=== PATIENT | male | born 1995 | race Caucasian/White ===

== ENCOUNTER 2022-06-09 23:32 | Emergency (ER) | payer BC, SELFPAY ==
--- NOTE | ~2022-06-09 | XR_ITS ---
EXAMINATION: XR chest 2V DATE: 06/10/2022 00:00 INDICATION: Chest pain. TECHNIQUE: Frontal and lateral views of the chest were obtained. COMPARISON: None. FINDINGS: A calcified right lung nodule and calcified right hilar lymph nodes are consistent with old granulomatous disease. No pleural effusion or pneumothorax. The heart size is normal. IMPRESSION: 1. No acute cardiopulmonary disease. Reviewed, dictated and finalized at location A.
--- NOTE | 2022-06-09 23:44 | ECG_ITS ---
Measurements Intervals [place] Rate: 66 P: 46 CA: 134 QRS: 28 QRSD: 96 T: 29 QT: 363 QTc: 383 Interpretive Statements SINUS RHYTHM NONSPECIFIC T-WAVE ABNORMALITY- ANTERIOR LEADS BORDERLINE ECG NO PREVIOUS ECG AVAILABLE FOR COMPARISON Electronically Signed On 06-10-2022 7:46:49 CDT by Carmelo Chavez D.O.
[2022-06-09 23:46] VITALS: BP 141/85; PULSE 66; RESP 16; TEMP 36.9; O2SAT 100
[2022-06-10 00:06] VITALS: PULSE 76
--- NOTE | 2022-06-10 00:29 | ED.CHESTPAIN ---
HPI - Chest Pain General Chief Complaint: Chest Pain <Marily Giron PA-C - Last Filed: 06/10/22 01:08> Stated Complaint: chest discomfort x 2 hours <Marily Giron PA-C - Last Filed: 06/10/22 01:08> Time Seen by Provider: 06/10/22 00:12 <Marily Giron PA-C - Last Filed: 06/10/22 01:08> Source: patient <Marily Giron PA-C - Last Filed: 06/10/22 01:08> Mode of arrival: ambulatory <Marily Giron PA-C - Last Filed: 06/10/22 01:08> Limitations: no limitations <Marily Giron PA-C - Last Filed: 06/10/22 01:08> History of Present Illness HPI narrative: This is a 26 year old male that presents to the ER for chest pain noted after smoking marijuana today. Reports the pain was like a pressure. Lasted for about 2 hours and has now resolved. He did not take anything for pain. Denies fever, cough, shortness of breath, or lower extremity edema. <Marily Giron PA-C - Last Filed: 06/10/22 01:08> Related Data Allergies/Adverse Reactions: Allergies Allergy/AdvReac Type Severity Reaction Status Date / Time No Known Allergies Allergy Verified 06/10/22 00:07 <Marily Giron PA-C - Last Filed: 06/10/22 01:08> Review of Systems Review of Systems: CONSTITUTIONAL: Denies fever CARDIOVASCULAR: Reports chest pain. Denies palpitations, or edema. RESPIRATORY: Denies cough or dyspnea. <Marily Giron PA-C - Last Filed: 06/10/22 01:08> All systems reviewed & are unremarkable except as noted in HPI and below <Marily Giron PA-C - Last Filed: 06/10/22 01:08> PMFSH Past Medical History Medical History: Medical History (Updated 06/10/22 @ 01:08 by Marily Giron PA-C) No active medical problems <Marily Giron PA-C - Last Filed: 06/10/22 01:08> Social History Social History: Social History (Updated 06/10/22 @ 00:30 by Marily Giron PA-C) Smoking status: Never smoker Alcohol intake: current Substance use: current Substance use type: marijuana <Marily Giron PA-C - Last Filed: 06/10/22 01:08> Exam Narrative: GENERAL: Well-appearing, well-nourished, and in no acute distress. HEAD: Normocephalic, atraumatic. EYES: EOMI. CHEST: Clear to auscultation. No respiratory distress. No wheezes rales or rhonchi HEART: Regular rate and rhythm. No murmur heard. Normal peripheral pulses. EXTREMITIES: Normal range of motion. No edema. SKIN: Warm, dry, no rash. NEURO: No focal deficits. Alert and oriented x3. PSYCH: Normal mood and affect <Marily Giron PA-C - Last Filed: 06/10/22 01:08> Course Vital Signs Vital signs: Vital Signs Temperature 98.5 F 06/09/22 23:46 Pulse Rate 66 06/09/22 23:46 Respiratory Rate 16 06/09/22 23:46 Blood Pressure 141/85 H 06/09/22 23:46 Pulse Oximetry 100 06/09/22 23:46 Oxygen Delivery Room Air 06/09/22 23:46 Temperature 98.5 F 06/09/22 23:46 Pulse Rate 76 06/10/22 00:06 Respiratory Rate 16 06/09/22 23:46 Blood Pressure 141/85 H 06/09/22 23:46 Pulse Oximetry 100 06/09/22 23:46 Oxygen Delivery Room Air 06/10/22 00:06 <Marily Giron PA-C - Last Filed: 06/10/22 01:08> Vital Signs Temperature 98.5 F 06/09/22 23:46 Pulse Rate 66 06/09/22 23:46 Respiratory Rate 16 06/09/22 23:46 Blood Pressure 141/85 H 06/09/22 23:46 Pulse Oximetry 100 06/09/22 23:46 Oxygen Delivery Room Air 06/09/22 23:46 Temperature 98.5 F 06/09/22 23:46 Pulse Rate 76 06/10/22 00:06 Respiratory Rate 16 06/09/22 23:46 Blood Pressure 141/85 H 06/09/22 23:46 Pulse Oximetry 100 06/09/22 23:46 Oxygen Delivery Room Air 06/10/22 00:06 <Milana Villanueva MD - Last Filed: 06/10/22 01:19> MDM - Chest Pain MDM Narrative Medical decision making narrative: Patient presents to the emergency department for chest pain noted after smoking marijuana tonight. Pain had resolved upon my evaluation. His vitals are stable. CBC and metabolic panel wit
[2022-06-10 00:34] LABS: Basophils Percent Auto 0.3 % (0.2-1.2); Eosinophils Absolute Auto 0.1 K/mm3 (0-0.3); Eosinophils Percent Auto 0.7 % (0-4.4); Hematocrit 44.7 % (42.0-52.0); Hemoglobin 15.3 g/dL (14.0-18.0); Immature Granulocyte Absolute 0.05 K/mm3 (0.00-0.031); Immature Granulocyte Percent A 0.5 % (0-0.5); Lymphocytes Absolute Auto 2.33 K/mm3 (0.9-3.2); Lymphocytes Percent Auto 24.1 % (18.3-44.2); Mean Corpuscular HGB Conc 34.2 g/dl (32-36); Mean Corpuscular Hemoglobin 31.5 pg (26-34); Mean Platelet Volume 9.8 fl (7.4-10.4); Monocytes Absolute Auto 0.7 K/mm3 (0.1-0.6); Neutrophils Absolute Auto 6.5 K/mm3 (1.3-6.7); Neutrophils Percent Auto 67.4 % (45.5-73.1); Platelet Count Result 235 k/mm3 (150-375); Red Blood Count 4.86 M/mm3 (4.6-6.20); Red Cell Distribution Width 12.1 % (11.5-14.5); White Blood Count 9.7 K/mm3 (4.5-10.0)
[2022-06-10 00:38] LABS: INR 1.1; Prothrombin Time 13.3 Seconds (11.1-14.7)
[2022-06-10 00:39] LABS: Partial Thromboplastin Time 30.2 SECONDS (22.3-36.8)
[2022-06-10 00:51] LABS: Alanine Aminotransferase 36 U/L (6-50); Albumin Level 4.7 g/dL (3.5-5.1); Alkaline Phosphatase 46 U/L (38-126); Anion Gap 16 mmol/L (8-16); Aspartate Amino Transferase 31 U/L (17-59); Bilirubin,Total 0.3 mg/dL (0.2-1.3); Blood Urea Nitrogen 16 mg/dL (9-20); Calcium 9.6 mg/dL (8.4-10.2); Carbon Dioxide 23 mmol/L (22-30); Chloride 102 mmol/L (98-107); Estimated CRCL calculation 150 ml/min; Estimated Glomerular Filt Rate > 60; Glucose 113 mg/dL (65-110); Lipase 126 U/L (23-300); Potassium 3.8 mmol/L (3.4-5.0); Sodium 141 mmol/L (137-145)
[2022-06-10 01:03] LABS: Troponin I < 0.012 ng/mL (0.000-0.034)
[2022-06-10 01:37] VITALS: PULSE 78; RESP 18; O2SAT 99
== END 2022-06-10 01:37 | disposition home or self-care (01) ==
PROVIDERS: Emergency Provider General Practice; PCP Registered Nurse
DX: R07.9 Chest pain, unspecified (principal); R91.1 Solitary pulmonary nodule
CPT/HCPCS: 36415; 71046; 80053; 83690; 84484; 85025; 85610; 85730; 93005; 99284